=== PATIENT | female | born 1960 | race Caucasian/White ===

== ENCOUNTER 2023-05-10 11:04 | Outpatient (AMB) | payer MEDICARE, MEDICAID, SELFPAY ==
--- NOTE | 2023-05-10 11:10 | MHC.OFFVIS ---
Intake Vital Signs 05/10/23 11:22 Height 5 ft Weight 190 lb BMI 37.1 Handedness Right Intake Visit Reasons: [employer]-pain in right shoulder Intake Note: Marcia is a 63 year old right hand dominant female who presents today as a new patient for a evaluation for her right shoulder pain. Previous patient of . She states that her last injection gave her 2-3 months of relief and she would like to repeat. She describes her pain as sharp in nature. Most of the pain is along the lateral aspect of her shoulder. She has done physical therapy which aggravated her pain. She has also tried Tylenol and anti-inflammatory medicines which gave her minimal relief. Allergies No Known Allergies Allergy (Verified 05/10/23 11:22) [facility] Social History (Updated 05/10/23 @ 11:22 by Armida Jimenes) Alcohol intake: never Patient Tobacco Use Status: Never used Tobacco Physical Exam Vital Signs: BMI result Body Mass Index 37.1 Const Other: Well-nourished well-developed very friendly female awake alert and oriented x3 in no acute distress Extrem Other: Bilateral upper extremity examination shows good capillary refill, no skin lesions noted, normal sensation light touch Right shoulder examination shows decreased range of motion when compared to her left shoulder, positive impingement signs, 4+ out of 5 strength with supraspinatus testing, no instability Office Procedures Joint Injection/Drain Joint Injection/Drain Primary Site: right shoulder Prep: site was prepped using aseptic technique Injected: 40 mg of, Kenalog and 1% plain lidocaine Procedure: The patient tolerated the procedure well Coding 19146 - Large joint Procedure code (CPT) selection complete Results Reviewed Results Reviewed: 05/10/23 11:13 Lidocaine HCl 2 % MPF [Xylocaine 2 % MPF] 5 ml .ROUTE .STK-MED ONE Triamcinolone Acetonide [Kenalog-40] 40 mg .ROUTE .STK-MED ONE X-rays of the patient's right shoulder show severe acromioclavicular joint narrowing, a type 2 acromion, no acute bony abnormalities Assessment & Plan Assessment & Plan (1) Right shoulder pain: Code(s): M25.511 - Pain in right shoulder Plan Ms. Simon presents with right shoulder pain due to impingement syndrome and rotator cuff tendinosis. I had a lengthy discussion with the patient regarding the treatment options. The patient wishes to hold off on surgery for as long as possible. I agree with this plan. The risks and benefits of a right shoulder cortisone injection were discussed at length with the patient. The patient wished to proceed. She tolerated the injection well. She will continue with her home stretching program. She will follow up with me on an as-needed basis should her symptoms not plateau at an unacceptable level over the next few months. Feel free to call me at any time should questions regarding her orthopedic management arise. The I spent 22 minutes in reviewing the patient's records and imaging studies, seeing the patient and documenting in the medical record. Orders: Orders XR shoulder RT min 2V Today M25.511 - Pain in right shoulder AMB Joint Injection/Aspiration Today M25.511 - Pain in right shoulder Coding Level of Care Code Est Pt Level 2 (42701) Diagnoses Right shoulder pain M25.511 CPT Codes Coding - 21288 Large joint: 82084 - Large joint ([id number])
[2023-05-10 11:22] VITALS: BMI 37.1
== END 2023-05-10 11:33 | disposition home or self-care (01) ==
PROVIDERS: PCP Internal Medicine; Visit Provider Orthopaedic Surgery
DX: M25.511 Pain in right shoulder (principal)
CPT/HCPCS: 20610; 99204; 99214

== ENCOUNTER 2023-05-10 16:43 | Outpatient (REF) | payer MEDICARE, MEDICAID, SELFPAY ==
--- NOTE | ~2023-05-10 | XR_ITS ---
EXAMINATION: XR SHOULDER, RIGHT CLINICAL INFORMATION: Pain in right shoulder COMPARISON: None available. TECHNIQUE: AP neutral and scapular Y views of the right shoulder. FINDINGS: The bones are intact. No fracture. Glenohumeral and acromioclavicular alignment is anatomic with normal joint space. Small calcific density adjacent to the humeral head is consistent with calcific tendinitis. XR/XR shoulder RT min 2V IMPRESSION: Calcific tendinitis.
== END 2023-05-10 16:44 | disposition home or self-care (01) ==
LOC: HO.HOSX 16:43
PROVIDERS: Visit Provider Orthopaedic Surgery
DX: M25.511 Pain in right shoulder (principal)
CPT/HCPCS: 20610; 73030; J3301

== ENCOUNTER 2023-08-14 14:20 | Outpatient (AMB) | payer MEDICARE, MEDICAID, SELFPAY ==
--- NOTE | 2023-08-14 14:22 | MHC.OFFVIS ---
Intake Vital Signs 08/14/23 14:23 Height 5 ft Weight 190 lb BMI 37.1 Intake Visit Reasons: ov- -pain in right shoulder last injec 05/10/23 Intake Note: Marcia is a 63 year old female who presents with complaints of right shoulder pain. She denies any weakness. She has done physical therapy exercises which aggravated her pain. She has had cortisone injections in the past which gave her good relief. She wishes to hold off on surgery for as long as possible. Allergies No Known Allergies Allergy (Verified 08/14/23 14:28) Medication List - Last Reconciled 08/14/23 by Dameon Medrano MD blood sugar diagnostic (FreeStyle Lite Strips) As directed duloxetine 60 mg PO DAILY omega 9-dax-jza-fish oil 300 mg (120 mg- 180mg)-1,000 mg 1 cap PO DAILY prednisone 50 mg PO QAM sulindac 150 mg PO BID tramadol 50 mg PO Q8H PRN triamcinolone acetonide 0.1% topical TID triamcinolone acetonide 0.1% appl topical BID PFSH Social History Alcohol intake: never Patient Tobacco Use Status: Never used Tobacco Physical Exam Vital Signs: BMI result Body Mass Index 37.1 Const Other: Well-nourished well-developed very friendly female awake alert and oriented x3 in no acute distress Extrem Other: Bilateral upper extremity examination shows good capillary refill, no skin lesions noted, normal sensation light touch Right shoulder examination shows slightly decreased range of motion when compared to her left shoulder, 4+ out of 5 strength with supraspinatus testing, positive impingement signs, no instability Office Procedures Joint Injection/Drain Joint Injection/Drain Primary Site: right shoulder Prep: site was prepped using aseptic technique Injected: 40 mg of, DepoMedrol and 1% plain lidocaine Procedure: The patient tolerated the procedure well Coding 41684 - Large joint Procedure code (CPT) selection complete Assessment & Plan Assessment & Plan (1) Impingement of right shoulder: Code(s): M25.811 - Other specified joint disorders, right shoulder Plan Ms. Simon presents with right shoulder pain due to impingement syndrome. I had a lengthy discussion with the patient regarding the treatment options. She wishes to hold off on surgery for as long as possible. I agree with this plan. The risks and benefits of a right shoulder cortisone injection were discussed at length with the patient. The patient wished to proceed. She tolerated the injection well. She will continue with her home stretching program. She will follow up with me on an as-needed basis should her symptoms not plateau at an unacceptable level over the next few months. Feel free to call me at any time should questions regarding her orthopedic management arise. I spent 22 minutes in reviewing the patient's records and imaging studies, seeing the patient and documenting in the medical record. Orders: Orders AMB Joint Injection/Aspiration 08/14/23 M25.811 - Other specified joint disorders, right shoulder Coding Level of Care Code Est Pt Level 2 (64330) Diagnoses Impingement of right shoulder M25.811 CPT Codes Coding - 13451 Large joint: 09829 - Large joint ([id number])
[2023-08-14 14:23] VITALS: BMI 37.1
== END 2023-08-14 14:43 | disposition home or self-care (01) ==
PROVIDERS: PCP Internal Medicine; Visit Provider Orthopaedic Surgery
DX: M75.41 Impingement syndrome of right shoulder (principal); M25.811 Other specified joint disorders, right shoulder
CPT/HCPCS: 20610; 99213

== ENCOUNTER → 2023-08-14 14:20 | Outpatient (BNVA) | payer MEDICARE, MEDICAID, SELFPAY | PROVIDERS: PCP Internal Medicine; Visit Provider Orthopaedic Surgery | DX: M25.811 Other specified joint disorders, right shoulder (principal) | CPT/HCPCS: 20610; 99212; J1020 ==

== ENCOUNTER 2023-11-19 13:50 | Outpatient (AMB) | payer MEDICARE, MEDICAID, SELFPAY ==
--- NOTE | 2023-11-19 13:52 | A.OFFVIS_ITS ---
Vital Signs 11/19/23 13:53 Height 5 ft Weight 190 lb BMI 37.1 Intake Visit Reasons: ov- -pain in right shoulder last injec 08/14/23 Intake Note: Marcia is a 63 year old Right hand dominate female who presents for a follow up for her Right shoulder pain. Patient reports she had a right shoulder injection on 08/14/2023 and it gave her good relief. She states she would like to repeat the injection today. She has done physical therapy exercises which aggravated her pain. She denies any weakness. She has taken Tylenol and anti- inflammatory medicines which gave her minimal relief. Allergies No Known Allergies Allergy (Verified 11/19/23 13:57) Medication List - Last Reconciled 11/20/23 by Dameon Medrano MD blood sugar diagnostic (FreeStyle Lite Strips) As directed duloxetine 60 mg PO DAILY omega 9-zvp-vgp-fish oil 300 mg (120 mg- 180mg)-1,000 mg 1 cap PO DAILY prednisone 50 mg PO QAM sulindac 150 mg PO BID tramadol 50 mg PO Q8H PRN triamcinolone acetonide 0.1% topical TID triamcinolone acetonide 0.1% appl topical BID PFSH Social History Alcohol intake: never Patient Tobacco Use Status: Never used Tobacco Physical Exam Vital Signs: BMI result Body Mass Index 37.1 Const Other: Well-nourished well-developed very friendly female awake alert and oriented x3 in no acute distress Extrem Other: Bilateral upper extremity examination shows good capillary refill, no skin lesions noted, normal sensation light touch Right shoulder examination shows slightly decreased range of motion when compared to her left shoulder, 5/5 strength with supraspinatus testing, positive impingement signs, no instability Office Procedures Joint Injection/Drain Joint Injection/Drain Primary Site: right shoulder Prep: site was prepped using aseptic technique Injected: 40 mg of, DepoMedrol and 1% plain lidocaine Procedure: The patient tolerated the procedure well Coding 25620 - Large joint Procedure code (CPT) selection complete Assessment & Plan Assessment & Plan (1) Impingement of right shoulder: Code(s): M25.811 - Other specified joint disorders, right shoulder Category: Medical Plan Ms. Simon presents with right shoulder pain due to impingement syndrome. I had a lengthy discussion with the patient regarding the treatment options. She wishes to hold off on surgery for as long as possible. I agree with this plan. The risks and benefits of a right shoulder cortisone injection were discussed at length with the patient. The patient wished to proceed with the injection. She tolerated the injection well. She will continue with her home stretching program to prevent stiffness. She will follow up with me on an as- needed basis should her symptoms not plateau at an unacceptable level over the next few months. Feel free to call me at any time should questions regarding her orthopedic management arise. I spent 22 minutes in reviewing the patient's records and imaging studies, seeing the patient and documenting in the medical record. Orders: Orders AMB Joint Injection/Aspiration 11/19/23 M25.811 - Other specified joint di sorders, right shoulder Coding Level of Care Code Est Pt Level 2 (08470) Diagnoses Impingement of right shoulder M25.811 CPT Codes Coding - 47698 Large joint: 46669 - Large joint ([id number])
[2023-11-19 13:53] VITALS: BMI 37.1
== END 2023-11-19 14:09 | disposition home or self-care (01) ==
PROVIDERS: PCP Internal Medicine; Visit Provider Orthopaedic Surgery
DX: M25.811 Other specified joint disorders, right shoulder (principal)
CPT/HCPCS: 20610; 99213

== ENCOUNTER → 2023-11-19 13:50 | Outpatient (BNVA) | payer MEDICARE, MEDICAID, SELFPAY | PROVIDERS: PCP Internal Medicine; Visit Provider Orthopaedic Surgery | DX: M25.811 Other specified joint disorders, right shoulder (principal); M25.511 Pain in right shoulder | CPT/HCPCS: 20610; 99212; J1010 ==

== ENCOUNTER 2024-02-18 14:33 | Outpatient (AMB) | payer MEDICARE, MEDICAID, SELFPAY ==
--- NOTE | 2024-02-18 14:34 | MHC.OFFVIS ---
Intake Visit Reasons: ov- -pain in right shoulder last injec 11/19/23 Intake Note: Marcia is a 63 year old female who presents to the office today for pain in right shoulder. Pt states her last cortisone injection was 11/19/23 which she states helped with the pain. She would like another injection today. She has tried Tylenol and anti-inflammatory medicines which gave her mild relief. She denies any weakness. She would like to hold off on surgery if at all possible. Allergies No Known Allergies Allergy (Verified 02/18/24 14:34) Medication List - Last Reconciled 02/19/24 by Dameon Medrano MD blood sugar diagnostic (FreeStyle Lite Strips) As directed duloxetine 60 mg PO DAILY omega 7-txj-mbs-fish oil 300 mg (120 mg- 180mg)-1,000 mg 1 cap PO DAILY prednisone 50 mg PO QAM sulindac 150 mg PO BID tramadol 50 mg PO Q8H PRN triamcinolone acetonide 0.1% topical TID triamcinolone acetonide 0.1% appl topical BID PFSH Social History Alcohol intake: never Patient Tobacco Use Status: Never used Tobacco Physical Exam Const Other: Well-nourished well-developed very friendly female awake alert and oriented x3 in no acute distress Extrem Other: Bilateral upper extremity examination shows good capillary refill, no skin lesions noted, normal sensation light touch Right shoulder examination shows full range of motion when compared to her left shoulder, 5/5 strength with supraspinatus testing, positive impingement signs, no instability Office Procedures Joint Injection/Drain Joint Injection/Drain Primary Site: right shoulder Prep: site was prepped using aseptic technique Injected: 40 mg of, DepoMedrol and 1% plain lidocaine Procedure: The patient tolerated the procedure well Coding 42559 - Large joint Procedure code (CPT) selection complete Assessment & Plan Assessment & Plan (1) Impingement of right shoulder: Code(s): M25.811 - Other specified joint disorders, right shoulder Category: Medical Plan Ms. Simon presents with right shoulder pain due to impingement syndrome. I had a lengthy discussion with the patient regarding the treatment options. She wishes to off on surgery for as long as possible. Agree with this plan. The risks and benefits of a right shoulder cortisone injection were discussed at length with the patient. The patient wished to proceed. She tolerated the injection well. She will continue with her home stretching program to prevent stiffness. She will follow up with me on an as-needed basis should her symptoms not plateau at an unacceptable level over the next few months. Feel free to call me at any time should questions regarding her orthopedic management arise. I spent 22 minutes in reviewing the patient's records and imaging studies, seeing the patient and documenting in the medical record. Orders: Orders AMB Joint Injection/Aspiration 02/18/24 M25.811 - Other specified joint disorders, right shoulder Coding Level of Care Code Est Pt Level 3 (70510) Diagnoses Impingement of right shoulder M25.811 CPT Codes Coding - 18339 Large joint: 20942 - Large joint ([id number])
== END 2024-02-18 15:00 | disposition home or self-care (01) ==
PROVIDERS: PCP Internal Medicine; Visit Provider Orthopaedic Surgery
DX: M25.811 Other specified joint disorders, right shoulder (principal)
CPT/HCPCS: 20610; 99213

== ENCOUNTER → 2024-02-18 14:33 | Outpatient (BNVA) | payer MEDICARE, MEDICAID, SELFPAY | PROVIDERS: PCP Internal Medicine; Visit Provider Orthopaedic Surgery | DX: M25.811 Other specified joint disorders, right shoulder (principal) | CPT/HCPCS: 20610; 99212; J1010 ==

== ENCOUNTER 2024-05-21 10:26 | Outpatient (AMB) | payer MEDICARE, MEDICAID, SELFPAY ==
[2024-05-21 10:32] VITALS: BMI 37.1
--- NOTE | 2024-05-21 10:32 | A.OFFVIS_ITS ---
Vital Signs 05/21/24 10:32 Height 5 ft Weight 190 lb BMI 37.1 Intake Visit Reasons: Right shoulder pain Intake Note: Marcia is a 64 year female who presents with complaints of progressively worsening right shoulder pain. She describes her pain as sharp in nature. She denies any weakness in her right shoulder. She has taken Tylenol and anti- inflammatory medicines which gave her only mild relief. She has had cortisone injections in the past which gave her fairly good relief. She wishes to hold off on surgery if at all possible. Allergies No Known Allergies Allergy (Verified 05/21/24 10:37) Medication List - Last Reconciled 05/21/24 by Dameon Medrano MD blood sugar diagnostic (FreeStyle Lite Strips) As directed duloxetine 60 mg PO DAILY omega 1-xqr-ork-fish oil 300 mg (120 mg- 180mg)-1,000 mg 1 cap PO DAILY prednisone 50 mg PO QAM sulindac 150 mg PO BID tramadol 50 mg PO Q8H PRN triamcinolone acetonide 0.1% topical TID triamcinolone acetonide 0.1% appl topical BID PFSH Social History Alcohol intake: never Patient Tobacco Use Status: Never used Tobacco Physical Exam Vital Signs: BMI result Body Mass Index 37.1 Const Other: Well-nourished well-developed very friendly female awake alert and oriented x3 in no acute distress Extrem Other: Bilateral upper extremity examination shows good capillary refill, no skin le sions noted, normal sensation light touch Right shoulder examination shows full range of motion when compared to her left shoulder, 4+ out of 5 strength with supraspinatus testing, positive impingement signs, tenderness over her acromioclavicular joint, no instability Office Procedures Joint Injection/Aspiration Joint Injection/Aspiration Primary Site: right shoulder Prep: site was prepped using aseptic technique Injected: 40 mg of, DepoMedrol and 1% plain lidocaine Procedure: The patient tolerated the procedure well Coding 89598 - Large joint Procedure code (CPT) selection complete Assessment & Plan Assessment & Plan (1) Impingement of right shoulder: Code(s): M25.811 - Other specified joint disorders, right shoulder Category: Medical (2) Right shoulder pain: Code(s): M25.511 - Pain in right shoulder Category: Medical Plan Marcia presents with right shoulder pain due to impingement syndrome. I had a lengthy discussion with the patient regarding the treatment options. The risks and benefits of a right shoulder cortisone injection were discussed at length with the patient. The patient wished to proceed. She tolerated the injection well. She will continue with her home stretching program. She will follow up with me on an as-needed basis should her symptoms not plateau at an unacceptable level over the next few months. Feel free to call me at any time should questions regarding her orthopedic management arise. I spent 22 minutes in reviewing the patient's records and imaging studies, seeing the patient and documenting in the medical record. Orders: Orders AMB Joint Injection/Aspiration Today M25.811 - Other specified joint disorders, right shoulder Coding Level of Care Code Est Pt Level 3 (45444) Complex EM visit Add On G2211 Diagnoses Impingement of right shoulder M25.811 Right shoulder pain M25.511 CPT Codes Coding - 56319 Large joint: 71150 - Large joint ([id number])
== END 2024-05-21 11:02 | disposition home or self-care (01) ==
PROVIDERS: PCP Internal Medicine; Visit Provider Orthopaedic Surgery
DX: M75.42 Impingement syndrome of left shoulder (principal); M25.811 Other specified joint disorders, right shoulder
CPT/HCPCS: 20610; 99213

== ENCOUNTER → 2024-05-21 10:26 | Outpatient (BNVA) | payer MEDICARE, MEDICAID, SELFPAY | PROVIDERS: PCP Internal Medicine; Visit Provider Orthopaedic Surgery | DX: M25.511 Pain in right shoulder (principal); M25.811 Other specified joint disorders, right shoulder | CPT/HCPCS: 20610; 99212; J1010; J2003 ==

== ENCOUNTER 2024-08-20 09:42 | Outpatient (AMB) | payer MEDICARE, MEDICAID, SELFPAY ==
[2024-08-20 09:46] VITALS: BMI 133570.0
--- NOTE | 2024-08-20 09:46 | MHC.OFFVIS ---
Vital Signs 08/20/24 09:46 Height 1 in Weight 190 lb BMI 585510.0 Intake Visit Reasons: Inj-right shoulder-last injection 05/21/24 Intake Note: Marcia is a 64 year female who presents with complaints of right shoulder pain. She describes her pain as sharp in nature. She has had cortisone injections past which gave her fairly good relief. She wishes to hold off on surgery for as long as possible. She has tried Tylenol and ibuprofen which gave her mild relief. She denies any weakness. Allergies No Known Allergies Allergy (Verified 08/20/24 09:46) Medication List - Last Reconciled 08/20/24 by Dameon Medrano MD blood sugar diagnostic (FreeStyle Lite Strips) As directed duloxetine 60 mg PO DAILY omega 4-rzu-dsr-fish oil 300 mg (120 mg- 180mg)-1,000 mg 1 cap PO DAILY prednisone 50 mg PO QAM sulindac 150 mg PO BID tramadol 50 mg PO Q8H PRN triamcinolone acetonide 0.1% topical TID triamcinolone acetonide 0.1% appl topical BID PFSH Social History Alcohol intake: never Patient Tobacco Use Status: Never used Tobacco Physical Exam Vital Signs: BMI result Body Mass Index 306598.0 Const Other: Well-nourished well-developed very friendly female awake alert and oriented x3 in no acute distress Extrem Other: Bilateral upper extremity examination shows good capillary refill, no skin lesions noted, normal sensation light touch Right shoulder examination shows slightly decreased range of motion when compared to her left shoulder, 5/5 strength with supraspinatus testing, positive impingement signs, tenderness over her acromioclavicular joint, no instability Assessment & Plan Assessment & Plan (1) Impingement of right shoulder: Code(s): M25.811 - Other specified joint disorders, right shoulder Category: Medical Plan Marcia presents with right shoulder pain due to impingement syndrome. The risks and benefits of a right shoulder cortisone injection were discussed at length with the patient. The patient wished to proceed. She tolerated the injection well. She will continue with her home stretching program. She will contact me prior to her follow-up appointment in 3 months should any questions or concerns arise. Feel free to call me at any time should questions regarding her orthopedic management arise. I spent 20 minutes in reviewing the patient's records and imaging studies, seeing the patient and documenting in the medical record. Orders: Orders AMB Joint Injection/Aspiration Today M25.811 - Other specified joint disorders, right shoulder Coding Level of Care Code Est Pt Level 3 (92626) Complex EM visit Add On G2211 Diagnoses Impingement of right shoulder M25.811
== END 2024-08-20 10:03 | disposition home or self-care (01) ==
PROVIDERS: PCP Internal Medicine; Visit Provider Orthopaedic Surgery
DX: M25.811 Other specified joint disorders, right shoulder (principal)
CPT/HCPCS: 99213; G2211

== ENCOUNTER → 2024-08-20 09:42 | Outpatient (BNVA) | payer MEDICARE, MEDICAID, SELFPAY | PROVIDERS: PCP Internal Medicine; Visit Provider Orthopaedic Surgery | DX: M25.811 Other specified joint disorders, right shoulder (principal) | CPT/HCPCS: 99212; J1010; J2003 ==

== ENCOUNTER 2025-05-20 11:31 | Outpatient (AMB) | payer MEDICARE, MEDICAID, SELFPAY ==
--- NOTE | 2025-05-20 11:34 | MHC.OFFVIS ---
Vital Signs 05/20/25 11:38 Height 5 ft Handedness Right Intake Visit Reasons: Right shoulder pain Intake Note: Marcia is a 65 year old female who presents with complaints of right shoulder pain. She describes her pain as sharp in nature. Most of the pain is along the lateral aspect of her right shoulder. She has had cortisone injections in the past which gave her fairly good relief. She denies any weakness. She wishes to hold off on surgery if at all possible. She has tried Advil and Tylenol which gave her mild relief. Allergies No Known Allergies Allergy (Verified 05/20/25 11:38) Medication List - Last Reconciled 05/20/25 by Dameon Medrano MD blood sugar diagnostic (FreeStyle Lite Strips) As directed duloxetine 60 mg PO DAILY omega 1-erv-jau-fish oil 300 mg (120 mg- 180mg)-1,000 mg 1 cap PO DAILY prednisone 50 mg PO QAM sulindac 150 mg PO BID tramadol 50 mg PO Q8H PRN triamcinolone acetonide 0.1% topical TID triamcinolone acetonide 0.1% appl topical BID PFSH Social History Alcohol intake: never Patient Tobacco Use Status: Never used Tobacco Physical Exam Const Other: Well-nourished well-developed very friendly female awake alert and oriented x3 in no acute distress Extrem Other: Right shoulder examination shows almost full range of motion when compared to her left shoulder, 5/5 strength with supraspinatus testing, positive impingement signs, no instability Office Procedures AMB Joint Injection/Aspiration Joint Injection/Aspiration Primary Site: right shoulder Prep: site was prepped using aseptic technique Injected: 40 mg of, DepoMedrol, with 4 mL of and 1% plain lidocaine Procedure: The patient tolerated the procedure well Coding 80133 - Large joint Procedure code (CPT) selection complete Assessment & Plan Assessment & Plan (1) Impingement of right shoulder: Code(s): M25.811 - Other specified joint disorders, right shoulder Category: Medical (2) Right shoulder pain: Code(s): M25.511 - Pain in right shoulder Category: Medical Plan Ms. Simon presents with right shoulder pain due to impingement syndrome. The risks and benefits of a right shoulder cortisone injection were discussed at length with the patient. The patient wished to proceed. She tolerated the injection well. She will continue with her home stretching program to prevent stiffness. She will contact me prior to her follow-up appointment in 3 months should any questions or concerns arise. Feel free to call me at any time should questions regarding her orthopedic management arise. I spent 22 minutes in reviewing the patient's records and imaging studies, seeing the patient and documenting in the medical record. Orders: Orders AMB Joint Injection/Aspiration Today M25.811 - Other specified joint disorders, right shoulder Coding Level of Care Code Est Pt Level 3 (95834) Complex EM visit Add On G2211 Diagnoses Impingement of right shoulder M25.811 Right shoulder pain M25.511 CPT Codes Coding - 59285 Large joint: 04873 - Large joint ([id number])
--- OUTSIDE RECORDS SUMMARY | 2025-05-20 14:40 | XMS_ITS | Clinical Summary ---
Author Organization [facility] Address [address] [place] [address] Care Team Providers Care [employer] Nurse Name Role Phone Flo Carty MD Primary Care Provider [phone] Allergies No known active allergies Medications Medication Sig Dispensed Refills Start Date End Date Status HYDROcodone-acetaminop hen (NORCO) 5-325 MG per tablet Take 5-325 tablets by mouth every 6 (six) hours as needed. for pain 0 02/04/2017 Active naproxen (NAPROSYN) 500 MG tablet Take 500 mg by mouth 2 (two) times a day with meals. 5 02/24/2017 Active baclofen (LIORESAL) 10 MG tablet TAKE 1 TABLET BY MOUTH THREE TIMES A DAY 0 11/29/2016 Active DULoxetine (CYMBALTA) DR capsule 30 mg Take 30 mg by mouth. 0 07/03/2018 Active [place]-3 Fatty Acids (FISH OIL) 1000 MG CAPS Take 1 capsule by mouth daily. 0 07/03/2018 Active tiZANidine (ZANAFLEX) 4 MG tablet Take 4 mg by mouth. 0 05/22/2018 Active sulindac (CLINORIL) 150 MG tablet TAKE 1 TABLET BY MOUTH 2 TIMES DAILY 0 07/16/2019 Active B Mkenldr-Frvvwd-SF (HM VITAMIN B100 COMPLEX) TABS Take 1 tablet by mouth. 0 11/06/2018 Active MAGNESIUM PO Take 500 mg by mouth. 0 11/06/2018 Active omeprazole (PriLOSEC) 40 MG capsule Take 40 mg by mouth. 0 07/16/2019 Active Diclofenac Sodium 1 % GEL APPLY 4 GRAMS TO THE SKIN FOUR TIMES DAILY NEEDED FOR BACK PAIN 0 2021 Active pregabalin (LYRICA) capsule 50 mg Take 50 mg by mouth. 0 11/24/2020 Active sulindac (CLINORIL) 150 MG tablet Take 1 tablet by mouth 2 (two) times a day. 0 06/29/2021 Active B Complex Vitamins (Vitamin B Complex) TABS Take 1 tablet by mouth daily. 0 08/24/2021 Active cyclobenzaprine (FLEXERIL) 10 MG tablet TAKE 1 TABLET BY MOUTH THREE TIMES DAILY FOR UP TO 10 DAYS NEEDED FOR MUSCLE SPASMS 0 08/24/2021 Active lidocaine (XYLOCAINE) 5 % ointment Apply 5 gm to area bid 0 08/24/2021 Active Active Problems Problem Noted Date Diagnosed Date Shoulder impingement, right 08/26/2019 Chronic right shoulder pain 03/06/2017 Family History Medical History Relation Name Comments Arthritis Father Arthritis Mother Relation Name Status Comments Father Mother Social History Tobacco Use Types Packs/Day Years Used Date Smoking Tobacco: Never Alcohol Use Standard Drinks/Week Comments No 0 (1 standard drink = 0.6 oz pur e alcohol) Sex and Gender Information Value Date Recorded Sex Assigned at Not on file Gender Identity Not on file Sexual Orientation Not on file Job Start Date Occupation Industry Not on file Not on file Not on file Last Filed Vital Signs Vital Sign Reading Time Taken Comments Blood Pressure - - Pulse - - Temperature - - Respiratory Rate - - Oxygen Saturation - - Inhaled Oxygen Concentration - - Weight 78 kg (172 lb) 03/06/2017 2:16 PM EDT Height 152.4 cm (5') 03/06/2017 2:16 PM EDT Body Mass Index 33.59 03/06/2017 2:16 PM EDT Plan of Treatment Health Maintenance Due Date Last Done Comments Hepatitis C Screening 1960 COVID-19 Vaccine (#1) 1960 Depression Screening 1972 Preventative Health Evaluation 1978 DTap / Tdap / Td (1 - Tdap) 1979 Cervical Cancer Screening (P ap Smear) 1981 Colon Cancer Screening (Colonoscopy) 2005 Breast Cancer Screening (Mammogram) 2010 Shingrix-Zoster Vaccine (1 of 2) 2010 Influenza Vaccine (#1) 2025 Fall Risk Assessment 2025 Osteoporosis Screening (DEXA Scan) 2025 Pneumococcal Vaccine (1 of 1 - PCV) 2025 RSV Adult > 60+ Yrs or Pregn ant (1 - 1-dose 75+ series) 2035 Hepatitis B Vaccines Aged Out No long er eligible based on patient's age to complete this topic Pneumococcal Vaccine Aged Out No long er eligible based on patient's age to complete this topic RSV Ped < 20 months Aged Out No longe r eligible based on patient's age to complete this topic Care Teams [employer] Nurse Relationship Specialty Start Date End Date Flo Carty MD PCP - General Internal Medicine 02/22/17
--- OUTSIDE RECORDS SUMMARY | 2025-05-20 14:40 | XMS_ITS | Data Portability ---
Author Organization [facility] Cristian Carty [facility], [facility] Address [address] [place] [address] Care Team Providers Care Campus Administrator Name Role Phone AGAPITO LUZ Referring Provider Assessment Encounter Date Assessment Date Assessment LastModified by Organization Details LastModified Time 03/26/2024 03/26/2024 History: The patient is approximately 3 months status post a right total knee arthroplasty and presents for routine follow-up per our request. Still with mild discomfort in her right knee. Does take ibuprofen regularly for this. It is over the lateral aspect of the knee around the IT band. Biggest issue, however, is increasing pain in her left knee. Has a history of osteoarthritis left knee. Does not wish to be considered for surgery at this point as she is still recovering from the right. She wants to discuss other treatment options. She is accompanied by her son today who helps interpret. Ambulating with a cane. PMH/PSH/MEDS/ALL/F MH/SOC HX/ROS all reviewed in detail per my medical intake sheet. ROS: The patient denies fevers, chills, neurovascular changes, history of trauma. Exam: Vitals signs as noted. Alert and oriented x3. Appears well and in no acute distress. Extremities: Incision is well-healed. Calves are soft and nontender. No evidence of DVT. No lower extremity edema. Neurovascular status at baseline. Orthopedic Examination: Right Knee: Well-healed incision. Range of motion 0-125. No instability. 4+ out of 5 quad strength with no extension lag. Tenderness around the IT band insertion. Appropriately mild effusion Left Knee: Varus alignment. Motion 5-120. Severe tenderness and crepitus medially. No instability. Mild effusion. Also 4+/5 quad strength with no extension lag. Antalgic gait pattern favoring the left side. Full strength and sensation distally X-rays: Radiographs reviewed from her previous visit including a standing AP, Winters view, nonweightbearing lateral views, and merchant view. These radiographs demonstrate end-stage osteoarthrits of the left knee. There is zrsl-dv-[id number] articulation, subchondral sclerosis, and osteophyte formation. Assessment: End-stage osteoarthritis of the left knee. The patient is doing reasonably well approximately 3 months s/p TKA -has some mild IT band tendinitis For her right knee replacement, the patient will continue with a home exercise program for additional strengthening and conditioning. Otherwise, the patient will continue with activity as tolerated. The patient was advised to take occasional OTC acetaminophen or OTC NSAIDS for mild residual discomfort if they are not otherwise medically contraindicated. They are encouraged to discuss this with their PCPS. The potential benefits, risks, and side effects were explained at length.Total knee replacement activity precautions were reviewed. The need for antibiotic prophylaxis for dental visits was discussed. The patient will follow-up annually or sooner if there are any problems. For her left knee osteoarthritis, the patient was thoroughly counseled today regarding their knee condition, its natural history and the options, both operative and non-operative. The nature of knee replacement surgery, the potential risks, benefits, and complications, the magnitude of the surgery, the intensity of postoperative recovery as well as its elective nature were explained at length today. Although it is impossible to list all of the possible complications of any operation or procedure, I explained that some of the major complications that may arise include the following: Blood loss requiring transfusion, infection (early or late), blood clots, dislocation, pain (persistent or new), scars numbness or tenderness, unequal leg lengths, weakness, stiffness, loss of motion, clicking of implant, calcification, fracture of bone, instability of leg, nerve damage (paralysis or numbness), blood vessel damage, implant loosening, implant breakage, wearing of the implant, need for future surgery, allergic reaction, metal toxicity, medical complications including confusion, heart attack, stroke, or ). Issues regarding lifelong infection and activity precautions were reviewed. The longevity of the implants was discussed. The patient understands the potential need for revision surgery. She does not wish to be considered for surgical intervention at this time. She does agree to having a corticosteroid injection in her left knee. This was given. Please see procedure note. She can repeat these injections every 3 months if they are effective. The patient knows I will be happy to meet with them at any time in order to review any additional questions or concerns that they might have. [email or web address] Not available 03/26/2024 12:09:33 01/07/2025 01/07/2025 Patient diagnosi s discussed with patient today. At this time symptoms most consistent with rotator cuff tendinopathy and impingement of that shoulder. Do not have any high suspicion at this point time for large full-thickness rotator cuff tear that would necessitate formal pain. Discussed roles of anti-inflammatorie s physical therapy and cortisone injection. At this point recommend a cortisone injection. Patient agrees to treatment plan. No significant improvement we will happily see her for modalities as noted above. [email or web address] Not available 01/07/2025 11:53:23 Plan of Treatment Reminders Order Date Submit Date Provider Last Modified By Organization Details Last Modified Time Details Appointments RECHECK 15 2024 02:15P David Aguila PA-C Not available Not available Not available Lab None recorded. Referral None recorded. Procedures None recorded. Surgeries None recorded. Imaging XR, shoulder, 2 or more view - room 211, R shoulder 4v 2024 025 [email or web address] 1 [facility], [address] [facility] [address], [address], 01/12/2025 10:44:36 Medication Orders amoxicill in 500 mg capsule 2023 024 [email or web address] [id number], [address] [place] [address], [facility] [address], [place], [place], [id number], 03/26/2024 16:52:26 Patient TargetsNo targets recorded. Patient InstructionsNo instructions recorded. Reason for Referral None Reported. Results Created Date Observation Date Name Description Value Unit Range Abnormal Flag Note LastModifiedBy Organization Detail LastModifiedTime 03/28/20 24 02/08/2022 imagi ng/di agnos tic resul t No observ ation record ed. [email or web address] Not Available 02/28 00:47:10 03/28/20 24 02/08/2022 imagi ng/di agnos tic resul t No observ ation record ed. [email or web address] Not Available 02/28 00:47:11 01/08/20 25 01/07/2025 XR, shoul claudio, 2 or more view http:/ [email or web address] ?Encry pted=s hAaTro YD8dLq bEUv6g %2BXZw aYqtaq 0bqfl% 2Fg9IQ a4ajBk vP9nXo QUaueC m3YtLR FvZlgJ JJ8mAn HZtai3 5x2583 AC0Kla H6BWKa gKiQtr MwF INTERFACE [facility] [address] [facility] [address], [place], [address], 01/07/2025 10:57:13 01/08/20 25 01/07/2025 XR, shoul claudio, 2 or more view http:/ [email or web address] ?Encry pted=s hAaTro YD8dLq bEUv6g %2BXZw aYqtaq 0bqfl% 2Fg9IQ a4ajBk vP9nXo QUaueC m3YtLR FvZlgJ JJ8mAn HZtai3 4r8945 AC0Kla H6BWKa gKiQtr MwF INTERFACE [facility] [address] [facility] [address], [place], [address], 01/07/2025 10:57:15 Result Notes Documentation Provider Name and Address Organization Details Recorded Time Xr, Shoulder, 2 Or More View : [email or web address] Encrypted=gcYzKcaYP4oYukS Uv6g%5YJNikCetcm0httd%2Fg 8CIf1hrWszN8eWbHWsimJk5Po MGHdZbsQFP7vYdKPuls86c314 6GI9DrsE1UYPvcFnIpwNnE Not Available [facility] 01/07/2025 10:57: 14 Xr, Shoulder, 2 Or More View : [email or web address] Encrypted=ruVhCljOQ4lSooF Uv6g%0GGRezAewep8ofrx%2Fg 5FSg5lyKnbR1iTuWJmjvMv1Qq PJSvMjrHJS0hLsMNjdk80q306 2IZ7KdrM2EWHdyLgUptIaS Not Available [facility] 01/07/2025 10:57: 16 Problems Name Problem SNOMED Code Status Onset Date Resolution Date Notes Provider Name and Address Organization Details Recorded Time Pain of joint of knee [id number] Active 022 Status: 'A'; Not Available [facility] 12:12:56 Problem Notes None recorded. Procedures Surgical History Date Name Laterality Status Provider Name and Address Organization Details Recorded Time 5 Knee Kenalog 1cc L/R completed Hernan Aguila PA-C [address], [place], [address], [facility] 03/05/2025 13:52:07 5 Sports Shoulder completed Hernan Aguila PA-C [address], [place], [address], [facility] 01/07/2025 11:52:50 5 Knee Kenalog 1cc L/R completed Hernan Aguila PA-C [address], [place], [address], [facility] 12/03/2024 12:21:03 5 Knee Kenalog 1cc L/R completed Hernan Aguila PA-C [address], [place], [address], [facility] 08/28/2024 14:35:55 4 Sports Knee 4&1 active Ministerio Eason PA-C [address], [place], [address], [facility] 06/19/2024 13:48:06 4 Sports Knee 4&1 completed Chintan Russell MD [address], [place], [address], [facility] 03/26/2024 12:04:29 4 64602 Therapeutic Exercise (1:1) completed Rosales Wing COSTUMING SUPERVISOR [address], [place], [address], [facility] 03/04/2024 13:37:40 4 22932 Therapeutic Exercise (1:1) completed Reinaldo Monroe, PT [address], [place], [address], [facility] 02/19/2024 12:39:45 4 41812 Therapeutic Exercise (1:1) cancelled Reinaldo Monroe, PT [address], [place], [address], [facility] 02/13/2024 16:53:37 4 71714 Therapeutic Exercise (1:1) completed Rosales Wing PTA [address], [place], [address], [facility] 02/11/2024 13:10:14 4 26166 Therapeutic Exercise (1:1) completed Rosales Wing PTA [address], [place], [address], [facility] 02/07/2024 13:12:34 4 71517 Therapeutic Exercise (1:1) completed Rosales Wing COSTUMING SUPERVISOR [address], [place], [address], [facility] 02/04/2024 10:09:13 4 11120 Therapeutic Exercise (1:1) completed Rosales Wing, COSTUMING SUPERVISOR [address], [place], [address], [facility] 01/31/2024 14:21:37 4 48115 Therapeutic Exercise (1:1) completed Rosales Wing, COSTUMING SUPERVISOR [address], [place], [address], [facility] 01/24/2024 15:26:19 4 95304 Therapeutic Exercise (1:1) completed Rosales Wing, COSTUMING SUPERVISOR [address], [place], [address], [facility] 01/23/2024 14:19:18 4 47947 Therapeutic Exercise (1:1) completed Rosales Wing, COSTUMING SUPERVISOR [address], [place], [address], [facility] 01/22/2024 13:31:20 4 55453 Therapeutic Exercise (1:1) completed Reinaldo Monroe, PT [address], [place], [address], [facility] 01/16/2024 15:56:14 4 39326 Therapeutic Exercise (1:1) completed Rosales Wing, COSTUMING SUPERVISOR [address], [place], [address], [facility] 01/13/2024 17:10:03 4 18462: Manual therapy completed Rosales Wing, COSTUMING SUPERVISOR [address], [place], [address], [facility] 01/13/2024 17:10:03 4 42578 Therapeutic Exercise (1:1) completed Rosales Wing, COSTUMING SUPERVISOR [address], [place], [address], [facility] 01/10/2024 14:37:40 4 14351: Manual therapy completed Rosales Wing, COSTUMING SUPERVISOR [address], [place], [address], [facility] 01/10/2024 14:37:47 4 42466 Therapeutic Exercise (1:1) completed Rosales Wing, COSTUMING SUPERVISOR [address], [place], [address], [facility] 01/08/2024 18:22:59 4 09365 Therapeutic Exercise (1:1) completed Reinaldo Monroe, PT [address], [place], [address], [facility] [employer] [facility] 01/01/2024 15:29:13 4 11496 Therapeutic Exercise (1:1) completed Reinaldo Monroe, PT [address], [place], [address], [facility] [employer] [facility] 12/30/2023 11:31:25 4 97451: Low complexity PT Eval completed Reinaldo Monroe, PT [address], [place], [address], [facility] 12/30/2023 11:31:32 4 G8417 BMI Above Upper Parameters, F/U Documented completed Reinaldo Monroe, PT [address], [place], [address], [facility] 12/30/2023 11:34:45 4 G8428 Current Meds NOT Documented Reason Not Specified completed Reinaldo Monroe, PT [address], [place], [address], [facility] 12/30/2023 11:34:51 4 39268 Therapeutic Exercise (1:1) completed Mike Reyes DPT [address], [place], [address], [facility] 11/28/2023 14:30:17 4 40228: Low complexity PT Eval completed Mike Reyes DPT [address], [place], [address], [facility] 11/28/2023 14:30:24 4 G8417 BMI Above Upper Parameters, F/U Documented completed Mike Reyes DPT [address], [place], [address], [facility] 11/28/2023 14:31:12 4 G8427 Current Medication Documented completed Mike Reyes DPT [address], [place], [address], [facility] 11/28/2023 14:31:08 Imaging Results None recorded. Procedure Notes None recorded. Medical Equipment None Reported. Allergies No known drug allergies Medications Name Sig Start Date Stop Date Status Note LastModified by Organization Details LastModified Time magnesium 500mg tablets TAKE 1 TABLET BY MOUTH DAILY active Not Available Not Available No t Available celecoxib 200 mg capsule Take 1 capsule(s ) every day by oral route for 33 days. 03/26 completed Not Available Not Available Not Available amoxicillin 500 mg capsule TAKE 4 CAPSULES BY MOUTH 1 HOUR BEFORE DENTAL APPOINTME NT active Not Available Not Available No t Available cetirizine 10 mg tablet TAKE 1 TABLET BY MOUTH EVERY DAY active Not Available Not Available No t Available FreeStyle Lancets 28 gauge USE TO TEST ONCE DAILY 03/26 completed Not Available Not Available Not Available ondansetron HCl 4 mg tablet TAKE 1 TABLET BY MOUTH EVERY 6 HOURS FOR 7 DAYS 03/26 completed Not Available Not Available Not Available sulindac 150 mg tablet TAKE 1 TABLET BY MOUTH TWICE DAILY active Not Available Not Available No t Available omeprazole 40 mg capsule,del ayed release TAKE 1 CAPSULE BY MOUTH DAILY active Not Available Not Available No t Available tramadol 50 mg tablet TAKE 1 TO 2 TABLETS BY MOUTH EVERY 6 HOURS NEEDED FOR MILD PAIN. DO NOT EXCEED 8 TABLETS (400MG) PER DAY. 03/26 completed Not Available Not Available Not Available aspirin 325 mg tablet,nikko yed release TAKE 1 TABLET BY MOUTH TWICE DAILY 03/26 completed Not Available Not Available Not Available prednisone 50 mg tablet TAKE 1 TABLET BY MOUTH DAILY IN THE MORNING FOR 5 DAYS 03/26 completed Not Available Not Available Not Available magnesium 500 mg (as magnesium oxide) tablet TAKE 1 TABLET BY MOUTH DAILY active Not Available Not Available No t Available docusate sodium 100 mg capsule TAKE 1 CAPSULE BY MOUTH TWICE DAILY 03/26 completed Not Available Not Available Not Available triamcinolo ne acetonide 0.1 % lotion APPLY TOPICALLY TO THE AFFECTED AREA THREE TIMES DAILY active Not Available Not Available No t Available loratadine 10 mg tablet TAKE 1 TABLET BY MOUTH EVERY DAY active Not Available Not Available No t Available oxycodone 5 mg tablet TAKE 1 TABLET BY MOUTH FOUR TIMES DAILY NEEDED FOR PAIN 03/26 completed Not Available Not Available Not Available duloxetine 60 mg capsule,del ayed release TAKE 1 CAPSULE BY MOUTH DAILY active Not Available Not Available No t Available FreeStyle Lite Meter kit USE TO CHECK BLOOD SUGAR DIRECTED 03/26 completed Not Available Not Available Not Available FreeStyle Lite Strips USE TO TEST ONCE DAILY 03/26 completed Not Available Not Available Not Available Refresh Optive 0.5 %-0.9 % eye drops INSTILL 1 DROP FOUR TIMES DAILY BOTH EYES active Not Available Not Available No t Available diclofenac 1 % topical gel APPLY 4 GRAMS TOPICALLY TWICE DAILY active Not Available Not Available No t Available omega-3 300 mg-dha 120 mg-epa 180 mg-fish oil 1,000 mg capsule TAKE 1 CAPSULE BY MOUTH EVERY DAY active Not Available Not Available No t Available Vitals Date Recorded Body height Body mass index (BMI) Body weight Provider Name and Address Organization Details Last Updated DateTime 08/28/2024 149.86 cm 39.4 kg/m2 37048.51 [facility] 08/28/2024 13:58:14 Date Recorded Body height Body mass index (BMI) Body weight Provider Name and Address Organization Details Last Updated DateTime 12/03/2024 149.86 cm 39.4 kg/m2 91663.51 g [facility] 12/03/2024 11:12:40 Date Recorded Body height Body mass index (BMI) Body weight Provider Name and Address Organization Details Last Updated DateTime 01/07/2025 149.86 cm 39.4 kg/m2 36887.51 g [facility]et [facility] 01/07/2025 10:47:31 Date Recorded Body height Body mass index (BMI) Body weight Provider Name and Address Organization Details Last Updated DateTime 03/05/2025 149.86 cm 39.4 kg/m2 59731.51 g [facility] 03/05/2025 13:44:20 Date Recorded Body height Body mass index (BMI) Body weight Provider Name and Address Organization Details Last Updated DateTime 03/26/2024 149.86 cm 39 kg/m2 90604.33 g RUI JESUS [facility] 03/26/2024 11:32:25 Social History None recorded. Functional Status None recorded. Mental Status None recorded. Family History Nothing Reported. Medical History No medical history recorded. Gynecological HistoryNo gynecological history recorded. Obstetrics History GPAL:G 0 P 0 0 0 0 Past Encounters Encounter ID Performer Location Encounter Start Date Encounter Closed Date Diagnosis/Indication Diagnosis SNOMED-CT Code Diagnosis ICD10 Code Diagnosis IMO Codes Diagnosis Note [id number] Mike Reyes DPT [facility] [address] [place] [address] 11/28/2023 12:56:58 11/28/2023 14:18:26 Osteoarthritis of knee 733870803 M17.11 [id number] Richy Pearson APRN [facility] [address] [place] [address] 12/16/2023 13:31:29 01/07/2024 04:09:23 Osteoarthritis of right knee joint 7929561273 89385 M17.11 [id number] Reinaldo Monroe, PT [facility] [address] [place] [address] 12/30/2023 11:00:59 12/30/2023 11:57:56 Aftercare 008563949 Z47.1 History of total knee arthroplasty 5589996881 105 Z96.542 [id number] Reinaldo Monroe, PT [facility] [address] [place] [address] 01/01/2024 14:45:20 01/01/2024 15:24:53 Aftercare [id number] Z47.1 History of total knee arthroplasty 8765808559 105 Z96.167 [id number] Fifi Berg PA-C [facility] [address] [place] [address] 01/03/2024 14:49:40 02/04/2024 12:19:35 History of right total knee replacement 6490877683 516120 Z96.651 Postoperative visit 1836 31460 Z48.89 Knee joint prosthesis present 4217863775 02 Z96.747 [id number] Rosales Wing, COSTUMING SUPERVISOR [facility] [address] [facility] [place] [address] 01/08/2024 17:28:20 01/08/2024 17:35:55 Aftercare 494573809 Z47.1 History of total knee arthroplasty 9440208087 105 Z96.557 [id number] Rosales Wing, COSTUMING SUPERVISOR [facility] [address] [place] [address] 01/10/2024 13:46:55 01/10/2024 15:06:20 Aftercare 780847451 Z47.1 History of total knee arthroplasty 8358674460 105 Z96.757 [id number] Rosales Wing, COSTUMING SUPERVISOR [facility] [address] [place] [address] 01/14/2024 13:46:25 01/14/2024 14:03:19 Aftercare 414180217 Z47.1 History of total knee arthroplasty 3951511546 105 Z96.150 [id number] Reinaldo Monroe, PT [facility] [address] [place] [address] 01/16/2024 15:26:58 01/16/2024 16:02:51 Aftercare 746794597 Z47.1 History of total knee arthroplasty 0937985726 105 Z96.327 [id number] CECILIA Berger [address] [place] [address] 01/20/2024 14:02:39 02/11/2024 11:39:57 Osteoarthritis of knee 038461062 M17.9 [id number] Rosales Wing, COSTUMING SUPERVISOR [facility] [address] [facility] [place] [address] 01/22/2024 13:06:00 01/22/2024 13:22:10 Aftercare 443380345 Z47.1 History of total knee arthroplasty 8946284442 105 Z96.022 [id number] Rosales Wing, COSTUMING SUPERVISOR [facility] [address] [place] [facility] [place] [address] 01/24/2024 11:03:36 01/24/2024 11:34:08 Aftercare [id number] Z47.1 History of total knee arthroplasty 9750438125 105 Z96.133 [id number] Rosales Wing, COSTUMING SUPERVISOR [facility] [address] [place] [facility] [address] 01/27/2024 14:50:26 01/27/2024 15:21:55 Aftercare 399846474 Z47.1 History of total knee arthroplasty 0880147836 105 Z96.389 [id number] Rosales iWng, COSTUMING SUPERVISOR [facility] [address] [place] [facility] [address] 02/03/2024 14:53:14 02/03/2024 15:51:22 Aftercare 362392059 Z47.1 History of total knee arthroplasty 8618587078 105 Z96.489 [id number] Rosales Wing, COSTUMING SUPERVISOR [facility] [address] [facility] [place] [address] 02/05/2024 13:02:12 02/05/2024 15:35:02 Aftercare 562733855 Z47.1 History of total knee arthroplasty 4164798076 105 Z96.124 [id number] Rosales Wing, COSTUMING SUPERVISOR [facility] [address] [facility] [place] [address] 02/10/2024 11:27:30 02/10/2024 12:02:59 Aftercare 616993747 Z47.1 History of total knee arthroplasty 8694964932 105 Z96.868 [id number] Rosales Wing, COSTUMING SUPERVISOR [facility] [address] [facility] [place] [address] 02/12/2024 11:27:28 02/12/2024 12:11:40 Aftercare 993309118 Z47.1 History of total knee arthroplasty 4315214147 105 Z96.597 [id number] Reinaldo Monroe, PT [facility] [address] [facility] [place] [address] 02/19/2024 12:00:06 02/19/2024 12:30:33 Aftercare [id number] Z47.1 History of total knee arthroplasty 5309685521 105 Z96.849 [id number] Orville Bueno PA-C [facility] [address] [place] [address] 02/27/2024 13:00:11 03/23/2024 08:40:18 Osteoarthritis of knee 805058675 M17.9 [id number] Rosales Wing, COSTUMING SUPERVISOR [facility] [address] [place] [address] 03/04/2024 11:56:00 03/04/2024 12:56:54 Aftercare [id number] Z47.1 History of total knee arthroplasty 6288478148 105 Z96.967 [id number] Chintan Russell MD [facility] [address] [place] [address] 03/26/2024 11:23:15 04/17/2024 11:29:07 History of right total knee replacement 1111758258 255239 Z96.651 Osteoarthr itis of left knee joint 7370206463 72026 M17.12 [id number] CECILIA Roca [facility] [address] [place] [address] 08/28/2024 13:47:04 09/10/2024 12:24:06 Osteoarthritis of left knee joint [id number] M17.12 [id number] You have been provided with a cortisone injection in order to reduce the pain and inflammati on that you are experienci ng. The injection consists of two medication s. Cortisone (an anti-infla mmatory that will take 48-72 hours to take effect) and Lidocaine (a numbing agent that will last 2-3 hours). Please note that not everyone will have a lasting response following the injection. PATIENT INSTRUCTIO NSOnce the Lidocaine wears off, you may have an increase in your pain. I recommend icing the affected area for 20 minutes 3-4 times per day.It is recommende d that you refrain from any high level activities using the joint or limb that was injected for approximat betina 24-48 hours. Normal day-to-day activities are generally not a problem.PO SSIBLE SIDE EFFECTSInd ividuals with dark complexion s may experience some skin discolorat ion locally at the site of the injection. There is the possibilit y of an increase in discomfort within 48 hours following the injection. This is called a f lare . To help minimize the chances of this, please see the post-injec tion instructio ns above.Ther e is a less than 1% chance of an infection. If you notice any signs of infection (redness, warmth, drainage, fever greater than 100 degrees) please call our office or contact us through the portal [facility]. [id number] [place] [address] 12/03/2024 11:01:23 12/18/2024 08:56:24 Osteoarthritis of left knee joint [id number] M17.12 [id number] You have been provided with a cortisone injection in order to reduce the pain and inflammati on that you are experienci ng. The injection consists of two medication s. Cortisone (an anti-infla mmatory that will take 48-72 hours to take effect) and Lidocaine (a numbing agent that will last 2-3 hours). Please note that not everyone will have a lasting response following the injection. PATIENT INSTRUCTIO NSOnce the Lidocaine wears off, you may have an increase in your pain. I recommend icing the affected area for 20 minutes 3-4 times per day.It is recommende d that you refrain from any high level activities using the joint or limb that was injected for approximat betina 24-48 hours. Normal day-to-day activities are generally not a problem.PO SSIBLE SIDE EFFECTSInd ividuals with dark complexion s may experience some skin discolorat ion locally at the site of the injection. There is the possibilit y of an increase in discomfort within 48 hours following the injection. This is called a f lare . To help minimize the chances of this, please see the post-injec tion instructio ns above.Ther e is a less than 1% chance of an infection. If you notice any signs of infection (redness, warmth, drainage, fever greater than 100 degrees) please call our office or contact us through the portal [facility]. [id number] [address] [place], [place] [address] 01/07/2025 10:41:09 01/18/2025 09:44:22 Pain of right shoulder joint [id number] M25.511 [id number] Impingemen t syndrome of right shoulder region [id number] M75.41 [id number] You have been provided with a cortisone injection in order to reduce the pain and inflammati on that you are experienci ng. The injection consists of two medication s. Cortisone (an anti-infla mmatory that will take 48-72 hours to take effect) and Lidocaine (a numbing agent that will last 2-3 hours). Please note that not everyone will have a lasting response following the injection. PATIENT INSTRUCTIO NSOnce the Lidocaine wears off, you may have an increase in your pain. I recommend icing the affected area for 20 minutes 3-4 times per day.It is recommende d that you refrain from any high level activities using the joint or limb that was injected for approximat betina 24-48 hours. Normal day-to-day activities are generally not a problem.PO SSIBLE SIDE EFFECTSInd ividuals with dark complexion s may experience some skin discolorat ion locally at the site of the injection. There is the possibilit y of an increase in discomfort within 48 hours following the injection. This is called shaylee grace . To help minimize the chances of this, please see the post-injec tion instructio ns above.Ther e is a less than 1% chance of an infection. If you notice any signs of infection (redness, warmth, drainage, fever greater than 100 degrees) please call our office or contact us through the portal [facility]. Arthritis of right acromioclavicular joint [id number] M19.011 [id number] [address] [place] [address] 03/05/2025 13:37:05 03/18/2025 13:33:23 Osteoarthritis of left knee joint [id number] M17.12 [id number] You have been provided with a cortisone injection in order to reduce the pain and inflammati on that you are experienci ng. The injection consists of two medication s. Cortisone (an anti-infla mmatory that will take 48-72 hours to take effect) and Lidocaine (a numbing agent that will last 2-3 hours). Please note that not everyone will have a lasting response following the injection. PATIENT INSTRUCTIO NSOnce the Lidocaine wears off, you may have an increase in your pain. I recommend icing the affected area for 20 minutes 3-4 times per day.It is recommende d that you refrain from any high level activities using the joint or limb that was injected for approximat betina 24-48 hours. Normal day-to-day activities are generally not a problem.PO SSIBLE SIDE EFFECTSInd ividuals with dark complexion s may experience some skin discolorat ion locally at the site of the injection. There is the possibilit y of an increase in discomfort within 48 hours following the injection. This is called a f lare . To help minimize the chances of this, please see the post-injec tion instructio ns above.Ther e is a less than 1% chance of an infection. If you notice any signs of infection (redness, warmth, drainage, fever greater than 100 degrees) please call our office or contact us through the portal [facility]. Health Concerns Section Related Observation LastModified by Organization Detai ls LastModified Time None Recorded Concern Status LastModified by Organization Details LastModified Time None Recorded Advance Directives Directive None Recorded Payers Insurance Date Sequence Insurance Name Policy Number Policy Fernandes Covered Member ID Fernandes Member ID Guarantor Name 03/03/2025 1 [place] [employer] Marcia Simon [id number] Marcia Simon 03/02/2025 2 [place] [facility] Marcia Simon [id number] Marcia Simon Notes Date Note Type Note Provider Name and Address Organization Details Recorded Time 08/28/2024 text/html I am seeing the patient today under the supervision of Dr. Bazzi who was available but who did not see the patient. HPI: Patient comes in for recheck of left knee pain. Has known osteoarthritis in the medial compartment of the knee(s). Been treated conservatively with cortisone injection to this point with 12 weeks relief of symptoms. No new injury or modalities. Past family, medical, social history and review of systems has been reviewed, updated and is located in the patient s chart. Examination:The patient is well appearing and in no apparent distress. Alert and oriented x3. Vital signs per intake sheet. Examination of the left knee reveals no effusion erythema or warmth. Decreased range of motion. Lower extremity varus deformity. Point tender over the medial joint line. Calf soft and nontender. 4+/5 strength of knee flexion extension. Impression: Osteoarthritis Plan: Nature of the diagnosis discussed with the patient today. Both surgical and nonsurgical options were reviewed. This point recommend a repeat cortisone injection. Patient agreed. anterior lateral portal was used. See Procedure note. Follow-up with us in 3 months for discussion of continued conservative management versus total joint arthroplasty. Hernan Aguila PA-C [address] [facility] [address] [place] [address], [phone], [facility] - [employer] 08/28/2024 14:36:14 12/03/2024 text/html I am seeing the patient today under the supervision of Dr. Kennedy who was available but who did not see the patient. HPI: Patient comes in for recheck of left knee pain. Has known osteoarthritis in the medial compartment of the knee(s). Been treated conservatively with cortisone injection to this point with 12 weeks relief of symptoms. No new injury or modalities. Past family, medical, social history and review of systems has been reviewed, updated and is located in the patient s chart. Examination:The patient is well appearing and in no apparent distress. Alert and oriented x3. Vital signs per intake sheet. Examination of the left knee reveals no effusion erythema or warmth. Decreased range of motion. Lower extremity varus deformity. Point tender over the medial joint line. Calf soft and nontender. 4+/5 strength of knee flexion extension. Impression: Osteoarthritis Plan: Nature of the diagnosis discussed with the patient today. Both surgical and nonsurgical options were reviewed. This point recommend a repeat cortisone injection. Patient agreed. anterior lateral portal was used. See Procedure note. Follow-up with us in 3 months for discussion of continued conservative management versus total joint arthroplasty. Hernan Aguila PA-C [address], [place], [address], [facility] 12/03/2024 12:21:28 01/07/2025 text/html I am seeing the patient today under the supervision of who was available but who did not see the patient. Patient was in for evaluation of right shoulder pain. Patient reports that the pain has been going on for a number of years has gotten worse last couple months has been discomfort of the lateral brachium difficulty with overhead motions reaching behind her back, getting dressed as well as sleeping. Patient has had no previous injury or surgery to that shoulder. Patient reports that she has undergone cortisone injections at an outside institution which has given her excellent relief of symptoms. Pain is now returned. Last injection was around July. Hernan Aguila PA-C [address], [place], [address], [facility] 01/07/2025 11:54:21 03/05/2025 text/html I am seeing the patient today under the supervision of Dr. Russell who was available but who did not see the patient. HPI: Patient comes in for recheck of left knee pain. Has known osteoarthritis in the medial compartment of the knee(s). Been treated conservatively with cortisone injection to this point with 10 weeks relief of symptoms. No new injury or modalities. Past family, medical, social history and review of systems has been reviewed, updated and is located in the patient s chart. Examination:The patient is well appearing and in no apparent distress. Alert and oriented x3. Vital signs per intake sheet. Examination of the left knee reveals no effusion erythema or warmth. Decreased range of motion. Lower extremity varus deformity. Point tender over the medial joint line. Calf soft and nontender. 4+/5 strength of knee flexion extension. Impression: Osteoarthritis Plan: Nature of the diagnosis discussed with the patient today. Both surgical and nonsurgical options were reviewed. This point recommend a repeat cortisone injection. Patient agreed. anterior lateral portal was used. See Procedure note. Follow-up with us in 3 months for discussion of continued conservative management versus total joint arthroplasty. Hernan Aguila PA-C [address], [place], [address], [facility] - [employer] 03/05/2025 13:52:35 OBGyn Episode No OBEpisode recorded.
--- OUTSIDE RECORDS SUMMARY | 2025-05-20 14:40 | XMS_ITS ---
Author Name [facility] Organization Unknown Care Team Organization Name Specialty Phone Email [facility] Date [facility] 06/05/2022
--- OUTSIDE RECORDS SUMMARY | 2025-05-20 14:40 | XMS_ITS | Clinical Summary ---
Author Organization [facility] [address] [place] [address] [place] [phone] Phone Care Team Providers Care Therapy Site Coordinator Name Role Phone Flo Carty MD Primary Care Provider [phone] Allergies No known active allergies Medications B complex tablet Take 1 tablet by mouth daily. 2 Active blood-glucose meter misc 1 Each by Does not apply route daily. 3 Active cyclobenzaprine (FLEXERIL) 10 mg tablet Take 1 tablet by mouth 3 times daily as needed for Muscle spasms for up to 10 days. 2 Active docosahexaenoic acid-epa 120-180 mg capsule Take 1 capsule by mouth daily. 4 Active blood sugar diagnostic (FreeStyle Lite Strips) test strip Test once daily 3 Active potassium/magne sium (MAGNESIUM-POTA SSIUM ORAL) 9 Active HYDROcodone-maikel taminophen (NORCO) 5-325 mg per tablet Take 1 tablet by mouth every 6 hours as needed for Pain for up to 7 days. 1 Active HYDROcodone-maikel taminophen (VICODIN) 5-300 mg per tablet Take 1 tablet by mouth every 6 hours as needed for Pain. 1 Active ketoconazole (NIZORAL) 2 % shampoo Let lather x 15 minutes daily 9 Active lidocaine (XYLOCAINE) 5 % ointment Apply 5 gm to area bid 2 Active pregabalin (LYRICA) 50 mg capsule 2 Active ketoconazole (NIZORAL) 2 % cream Apply topically 2 (two) times a day. 15 g 5 Active freestyle (FreeStyle Lancets) 28 gauge lancets 1 (one) time each day. 100 each 1 5 Active Additional Information Patient not taking.Reported on 04/16/2025 diclofenac (VOLTAREN) 1 % topical gel Apply 4 g topically 2 (two) times a day. 30 g 3 5 Active cetirizine (ZyrTEC) 10 mg tablet Take 1 tablet (10 mg total) by mouth 1 (one) time each day. 90 tablet 1 5 Active DULoxetine (CYMBALTA) [address] capsule TAKE 1 CAPSULE BY MOUTH DAILY 90 capsule 1 5 Active triamcinolone (KENALOG) 0.1 % lotion APPLY TOPICALLY TO THE AFFECTED AREA THREE TIMES DAILY 60 mL 5 5 Active omeprazole (PriLOSEC) [address] capsule TAKE 1 CAPSULE BY MOUTH DAILY 90 capsule 1 5 Active FreeStyle Test test strip Use to test blood sugar once daily 100 each 1 5 02/17/20 26 Active Additional Information Patient not taking.Reported on 04/16/2025 sulindac (CLINORIL) 150 mg tablet TAKE 1 TABLET BY MOUTH TWICE DAILY 180 tablet 1 5 Active magnesium oxide 500 mg magnesium tablet TAKE 1 TABLET BY MOUTH DAILY 90 tablet 1 5 Active atorvastatin (LIPITOR) 10 mg tablet Take 1 tablet (10 mg total) by mouth 1 (one) time each day. 90 each 1 5 04/16/20 26 Active Active Problems Problem Noted Date Diagnosed Date Seborrhea 07/16/2019 Obesity, Class II, BMI 35-39.9 03/19/2019 Pre-diabetes 10/23/2017 Acromioclavicular joint arthritis 10/06/2015 Adhesive capsulitis 10/06/2015 Overview (05/06/2024): Following with orthopedics (Marcela). Receiving cortisone injection. Lumbar disc disease 10/06/2015 Carpal tunnel syndrome 01/05/2015 Chronic back pain 08/02/2006 Encounters Date Type Department Care Team Description 04/16/2025 11:00 AM EDT Office Visit Adult Medicine [address] [phone] Flo Carty MD Type 2 diabetes mellitus without complication, without long-term current use of insulin ([facility] V24, [facility] V28) (Primary Dx); High cholesterol from Last 3 Months Surgical History Surgery Date Site/Laterality Comments TUBAL LIGATION PROCEDURE: HISTORICAL TUBAL LIGATION CHOLECYSTECTOMY 2006 PROCEDURE: HISTORICAL CHOLECYSTECTOMY Medical History Medical History Date Comments Chronic back pain 08/02/2006 DX:Chronic souleymane k pain; COMMENT: IMO update Carpal tunnel syndrome 01/05/2015 DX:Carpal tunnel syndrome Elevated glucose 12/30/2013 DX:Elevated glu cose Obesity, Class II, BMI 35-39.9 03/19/2019 D X:Obesity, Class II, BMI 35-39.9 Family History Medical History Relation Name Comments Diabetes Aunt Diabetes Mother Relation Name Status Comments Aunt Mother Social History Tobacco Use Types Packs/Day Years Used Date Smoking Tobacco: Never Smokeless Tobacco: Never Tobacco Cessation:Counseling Given: Not Answered Alcohol Use Standard Drinks/Week Comments No 0 (1 standard drink = 0.6 oz pur e alcohol) Housing Instability Answer Date Recorde d Are you worried that in the next 2 months you may not have stable housing? No 12/11/2024 Food Access & Nutrition Answer Date Rec orded Do you have access to a vari ety of food including fruits and vegetables? No 12/11/2024 Health Literacy Answer Date Recorded How often do you need to hav e someone help you when you read instructions, pamphlets, or other written material from your doctor or pharmacy? Often 12/11/2024 Caregiver: How often do you need to have someone help you when you read instructions, pamphlets, or other written material from your doctor or pharmacy? Not on file 12/11/2024 Financial Risk Answer Date Recorded How hard is it for you to pa y for the very basics like food, housing, medical care, and air conditioning / heating? Not very hard 12/11/2024 Transportation Answer Date Recorded Has the lack of transportati on kept you from meetings, work, or from getting things needed for daily living? No Has the lack of transportati on kept you from medical appointments or from getting medications? No 12/11/2024 Social Isolation Answer Date Recorded How often do you feel lonely or isolated from th ose around you? Never 12/11/2024 Food Risk Answer Date Recorded Within the past 12 months we worried whether our food would run out before we got money to buy more. Never true 12/11/2024 Within the past 12 months th e food we bought just didn't last and we didn't have money to get more. Never true 12/11/2024 Dependent Care Answer Date Recorded Do you need help finding or paying for care for your loved ones. For example, child care team lead or elderly care for an older adult? No 12/11/2024 Education Answer Date Recorded Do you think completing more education or training, like finishing a GED, going to college, or learning a trade, would be helpful for you? No 12/11/2024 Employment and Income Answer Date Recor ded During the last four weeks, have you been actively looking for work? No 12/11/2024 Living Situation Answer Date Recorded What is your living situation? Unrecognized valu e 12/11/2024 Comments No Sex and Gender Information Value Date Recorded Sex Assigned at Not on file Legal Sex Female 1:33 AM EST Gender Identity Not on file Sexual Orientation Not on file Obstetrics History Last Filed Vital Signs Vital Sign Reading Time Taken Comments Blood Pressure 122/76 04/16/2025 10:36 AM EDT Pulse 74 04/16/2025 10:36 AM EDT Temperature 36.5 C (97.7 F) 04/16/2025 10:36 AM EDT Respiratory Rate 16 04/16/2025 10:36 AM EDT Oxygen Saturation 95% 04/16/2025 10:36 AM EDT Inhaled Oxygen Concentration - - Weight 85.3 kg (188 lb) 04/16/2025 10:36 AM EDT Height 152.4 cm (5') 04/16/2025 10:36 AM EDT Body Mass Index 36.72 04/16/2025 10:36 AM EDT Plan of Treatment Health Maintenance Due Date Last Done Comments Diabetes: Annual Foot Exam 1970 Diabetes: Annual Retina Eye Exam 1970 DTaP,Tdap,and Td Vaccines (1 - Tdap) 1979 Pneumococcal Vaccine: 50+ Years (1 of 2 - PCV) 1979 Cervical Cancer Screening: P ap Smear 1981 Zoster Vaccines (1 of 2) 2010 Breast Cancer Screening 11/14/2019 11/14/19 18, 11/06/2017 Hepatitis C Screening 07/05/2022 Osteoporosis Screening (Bone Density Screening) 07/05/2022 Medicare Annual Wellness Visit 12/21/2023 12/20/2022 COVID-19 Vaccine (1 - 2023-2 5 season) 2025 Influenza Vaccine (#1) 2025 Falls Risk Assessment 2025 Diabetes: Blood Sugar Contro l Test (HGBA1C) 10/14/2025 04/16/2025, 12/11/2024, 07/05/2023 Social Influencers of Health Screening 12/11/2025 12/11/2024 Diabetes: Annual Urine Albumin-Creatinine Ratio (uACR) 04/16/2026 04/16/2025, 12/11/2024, 07/05/2023 Diabetes: Annual GFR (Glomerular Filtration Rate) 04/16/2026 04/16/2025, 12/11/2024, 12/28/2022 Colorectal Cancer Screening: FIT-DNA (Cologuard) 01/16/2028 01/15/2025, 01/15/2025 Cholesterol Screening (Lipid Panel) 04/16/2030 04/16/2025, 12/11/2024, 07/05/2023 RSV Immunization Adult Patients (1 - 1-dose 75+ series) 2035 Depression Screening Completed 12/11/2024 HIB Vaccines Aged Out No longer eligi ble based on patient's age to complete this topic HPV Vaccines Aged Out No longer eligi ble based on patient's age to complete this topic Hepatitis A Vaccines Aged Out No long er eligible based on patient's age to complete this topic Hepatitis B Vaccines Aged Out No long er eligible based on patient's age to complete this topic IPV Vaccines Aged Out No longer eligi ble based on patient's age to complete this topic MMR Vaccines Aged Out No longer eligi ble based on patient's age to complete this topic Meningococcal ACWY Vaccine Aged Out N o longer eligible based on patient's age to complete this topic Meningococcal B Vaccine Aged Out No l onger eligible based on patient's age to complete this topic RSV Immunization Patients Under 20 months Aged Out No longer eligible b ased on patient's age to complete this topic Varicella Vaccines Aged Out No longer eligible based on patient's age to complete this topic Procedures Procedure Name Priority Date/Time Associated Diagnosis Comments HEMOGLOBIN A1C Routine 04/16/2025 11:27 AM EDT Type 2 diabetes mellitus without complication, without long-term current use of insulin ([facility] V24, [facility] V28) LIPID PANEL WITH REFLEX TO DIRECT LDL Routine 04/16/2025 11:27 AM EDT Type 2 diabetes mellitus without complication, without long-term current use of insulin ([facility] V24, [facility] V28) High cholesterol COMPREHENSIVE METABOLIC PANEL Routine 04/16/2025 11:27 AM EDT Type 2 diabetes mellitus without complication, without long-term current use of insulin ([facility] V24, [facility] V28) MICROALBUMIN CREATININE URINE RATIO Routine 04/16/2025 11:27 AM EDT Type 2 diabetes mellitus without complication, without long-term current use of insulin ([facility] V24, [facility] V28) POC GLUCOSE Routine 04/16/2025 10:57 AM EDT Type 2 diabetes mellitus without complication, without long-term current use of insulin ([facility] V24, [facility] V28) LAB COLOGUARD COLON CANCER SCREEN Routine 01/15/2025 8:00 AM EDT Screen for colon cancer DX MAMMO INCL CAD UNI Routine 11/13/2017 4:27 PM EDT Other abnormal and inconclusive findings on diagnostic imaging of breast from Last 3 Months or Most Recently Relevant to Health Maintenance Results * (ABNORMAL) Lipid panel with reflex to direct LDL (04/16/2025 11:27 AM EDT) Cholesterol 204(H) 0 - 200 mg/dL LAB CHEMISTRY METHOD 04/16/2025 3:36 PM EDT [facility] Triglycerides 122 0 - 150 mg/dL LAB CHEMISTRY METHOD 04/16/2025 3:36 PM EDT [facility] HDL 56 >=40 mg/dL LAB CHEMISTRY METHOD 04/16/2025 3:36 PM EDT [facility] LDL Calculated 124(H) 0 - 100 mg/dL LAB CHEMISTRY METHOD 04/16/2025 3:36 PM EDT [facility] Comment:Estimated LDL Calcul ated using equation: Total cholesterol - HDL cholesterol - (Triglycerides/5) VLDL Cholesterol Kali 24.4 mg/dL LAB CHEMISTRY METHOD 04/16/2025 3:36 PM EDT [facility] Non HDL Chol. (LDL+VLDL) 148(H) <145 mg/dL LAB CHEMISTRY METHOD 04/16/2025 3:36 PM EDT [facility] Chol/HDL Ratio 3.6 0.0 - 4.4 LAB CHEMISTRY METHOD 04/16/2025 3:36 PM EDT [facility] Blood Venous blood specimen / Unknown Venipuncture / Unknown 04/16/2025 11:27 AM EDT 04/16/2025 11:27 AM EDT us Flo Carty MD LAB BLOOD ORDERABLES Final Resu lt [facility] [address] [place] [address], * Microalbumin creatinine urine ratio (04/16/2025 11:27 AM EDT) Creatinine, Urine 187.0 mg/dL LAB CHEMISTRY METHOD 04/16/2025 4:03 PM EDT [facility] Microalb, Ur 15.4 0.0 - 29.0 mg/L LAB CHEMISTRY METHOD 04/16/2025 4:03 PM EDT [facility] Microalb/Creat Ratio 8 <30 mg/g creat LAB CHEMISTRY METHOD 04/16/2025 4:03 PM EDT [facility] Urine Urine specimen obtained by clean catch procedure / Unknown Non-blood Collection / Unknown 04/16/2025 11:27 AM EDT 04/16/2025 11:27 AM EDT us Flo Carty MD LAB URINE ORDERABLES Final Resu lt Performing Organization Address [facility]/ZIP Co de Phone Number [facility] [address] [place] [address], [place] [phone] * (ABNORMAL) Hemoglobin A1c (04/16/2025 11:27 AM EDT) Hemoglobin A1C 6.8(H) <6.5 % LAB CHEMISTRY METHOD 04/16/2025 9:19 PM EDT [facility] Mean Bld Glu Estim. 148 mg/dL LAB CHEMISTRY METHOD 04/16/2025 9:19 PM EDT [facility] Blood Venous blood specimen / Unknown Venipuncture / Unknown 04/16/2025 11:27 AM EDT 04/16/2025 11:27 AM EDT us Flo Carty MD LAB BLOOD ORDERABLES Final Resu lt Performing Organization Address [facility]/ZIP Co de Phone Number [facility] [address] [place] [address], [place] [phone] * (ABNORMAL) Comprehensive metabolic panel (04/16/2025 11:27 AM EDT) Sodium 137 133 - 145 mmol/L LAB CHEMISTRY METHOD 04/16/2025 3:45 PM EDT [facility] Potassium 4.4 3.5 - 5.5 mmol/L LAB CHEMISTRY METHOD 04/16/2025 3:45 PM EDT [facility] Chloride 106 96 - 110 mmol/L LAB CHEMISTRY METHOD 04/16/2025 3:45 PM [facility] CO2 29 21 - 32 mmol/L LAB CHEMISTRY METHOD 04/16/2025 3:45 PM [facility] Anion Gap 2(L) 3 - 11 LAB CHEMISTRY METHOD 04/16/2025 3:45 PM [facility] Glucose 106(H) 70 - 100 mg/dL LAB CHEMISTRY METHOD 04/16/2025 3:45 PM [facility] BUN 10 5 - 25 mg/dL LAB CHEMISTRY METHOD 04/16/2025 3:45 PM [facility] Creatinine 0.70 0.50 - 1.10 mg/dL LAB CHEMISTRY METHOD 04/16/2025 3:45 PM [facility] eGFR 97 >=60 mL/min/1. 73m2 LAB CHEMISTRY METHOD 04/16/2025 3:45 PM [facility] Comment:Calculation based on the Chronic Kidney Disease Epidemiology Collaboration (CKD-EPI) equation refit without adjustment for race. BUN/Creatinine Ratio 14.3 LAB CHEMISTRY METHOD 04/16/2025 3:45 PM [facility] Calcium 9.6 8.5 - 10.5 mg/dL LAB CHEMISTRY METHOD 04/16/2025 3:45 PM [facility] AST (SGOT) 18 10 - 42 unit/L LAB CHEMISTRY METHOD 04/16/2025 3:45 PM [facility] ALT (SGPT) 26 10 - 60 unit/L LAB CHEMISTRY METHOD 04/16/2025 3:45 PM [facility] Alkaline Phosphatase 131(H) 42 - 121 unit/L LAB CHEMISTRY METHOD 04/16/2025 3:45 PM [facility] Total Protein 6.9 6.0 - 8.0 g/dL LAB CHEMISTRY METHOD 04/16/2025 3:45 PM EDT [facility] Albumin 3.9 3.2 - 5.0 g/dL LAB CHEMISTRY METHOD 04/16/2025 3:45 PM EDT [facility] Total Bilirubin 0.4 0.0 - 1.4 mg/dL LAB CHEMISTRY METHOD 04/16/2025 3:45 PM EDT [facility] Blood Venous blood specimen / Unknown Venipuncture / Unknown 04/16/2025 11:27 AM EDT 04/16/2025 11:27 AM EDT us Flo Carty MD LAB BLOOD ORDERABLES Final Resu lt [facility] [address] [place] [address], [place] [phone] * (ABNORMAL) POC glucose manually resulted (04/16/2025 10:57 AM EDT) Glucose POC 119(A) 70 - 110 mg/dL Blood Capillary blood specimen / Unknown 04/16/2025 10:57 AM EDT us Flo Carty MD POINT OF CARE TEST ENTER/EDIT O RDERABLES Final Result * Cologuard?? colon cancer screening (01/15/2025 8:00 AM EDT) COLOGUARD Negative Negative [facility] Comment: The Cologuard Plus (TM) test was performed on this specimen. NEGATIVE TEST RESULT. A negative (normal) Cologuard Plus result means the patient has a [id number] chance of having colorectal cancer (CRC) or advanced precancer (polyps or lesions that could become cancer). Negative is the normal value (reference range) for this assay. Guidelines recommend screening again 3 years after a negative Cologuard Plus result. Continued screening increases the chance of finding CRC early or preventing it entirely. A clinical validation study showed the Cologuard Plus test is effective at ruling out CRC. Out of every 10,000 patients testing negative, approximately 2 will be falsely reassured that they do not have CRC, and out of every 100 patients testing negative, approximately 7 patients will be falsely reassured they do not have advanced precancer. TEST DESCRIPTION: The Cologuard Plus test is a multi-target stool DNA (mt-sDNA) test that analyzes DNA and hemoglobin biomarkers in stool. It uses a proprietary algorithm to qualitatively detect CRC and advanced precancer. It is FDA-approved and indicated for use in adults 45 years or older at average risk for CRC. A positive (abnormal) result should be followed by a colonoscopy. Patients with a negative (normal) result should screen again in 3 years. False positive and false negative results may occur. The USPSTF recommends the Cologuard test as a CRC screening option. Their modeling estimates that screening with the test every 3 years from ages 45-85 could prevent up to 73% of CRC and avoid up to 85% of CRC deaths. A 18,911-patient clinical trial found the Cologuard Plus test effectively detects CRC and precancer. The study found the test was 95% sensitive for CRC, 43% sensitive for advanced precancer, and had a 91% specificity (Cologuard Plus Clinician Brochure. [employer]. [place], [place].). Visit [email or web address] for more test information, references, warnings, and precautions. Stool 01/15/2025 8:00 AM EDT 01/16/2025 3:56 PM EDT Flo Carty MD LAB MOLECULAR DIAGNOSTICS ORDER JOSE ALEJANDRO Final Result [facility] [address] [address] [facility] [address] [place] [address] * DX MAMMO INCL CAD UNI (11/13/2017 4:27 PM EDT) Anatomical Region Laterality Modality Mammography 11/11/2017 11:1 8 AM EDT Narrative 12/02/2018 8:53 AM EDT This is a summary report. The complete report is available in the patient's medical record. If you cannot access the medical record, please contact the sending organization for a detailed fax or copy. Addendum: The patient never returned for the scheduled 6 month follow-up left breast mammogram or for yearly mammogram with magnification views. The patient stated that she did not wish to reschedule at this time. Unilateral left breast diagnostic digital mammogram History: Microcalcifications retroareolar left breast on baseline screening mammogram of 11/06/2017. Technique: Magnetization views of the left breast in the CC, MLO and mediolateral projections are obtained. Findings: There are faint loosely grouped punctate calcifications in the retroareolar region of the left breast. Impression: Probably benign left breast micro-calcifications. Magnification views of the left breast in 6 months to assess stability are recommended and have been scheduled. BI-RADS 3-probable benign 5 year breast cancer risk assessment N/A Lifetime breast cancer risk assessment N/A Breast cancer risk category Breast cancer risk not assessed Procedure Note Rosio Gutiérrez MD - 09/02/2023 This is a summary report. The complete report is available in thepatient's medical record. If you cannot access the medical record, pleasecontact the sending organization for a detailed fax or copy. Addendum: The patient never returned for the scheduled 6 month follow-upleft breast mammogram or for yearly mammogram with magnification views. The patient stated thatshe did not wish to reschedule at this time. Unilateral left breast diagnostic digital mammogram History: Microcalcifications retroareolar left breast on baselinescreening mammogram of 11/06/2017. Technique: Magnetization views of the left breast in the CC, MLO andmediolateral projections are obtained. Findings: There are faint loosely grouped punctate calcifications in theretroareolar region of the left breast. Impression: Probably benign left breast micro-calcifications.Magnification views of the left breast in 6 months to assess stability arerecommended and have been scheduled. BI-RADS 3-probable benign 5 year breast cancer risk assessment N/A Lifetime breast cancer risk assessment N/A Breast cancer risk category Breast cancer risk not assessed [facility] BI PROCEDURES Edited Resu lt - Final from Last 3 Months or Most Recently Relevant to Health Maintenance Insurance MEDICARE [place]ICAID [place] [facility] Care Teams Therapy Site Coordinator Relationship Specialty Start Date End Date Flo Carty MD [address] [place] [phone] PCP - General Internal Medicine 07/01/24
== END 2025-05-20 11:48 | disposition home or self-care (01) ==
LOC: HO.HOS 11:31
PROVIDERS: PCP Internal Medicine; Visit Provider Orthopaedic Surgery
DX: M25.811 Other specified joint disorders, right shoulder (principal); M25.511 Pain in right shoulder
CPT/HCPCS: 20610; 99213

== ENCOUNTER → 2025-05-20 11:31 | Outpatient (BNVA) | payer MEDICARE, MEDICAID, SELFPAY | PROVIDERS: PCP Internal Medicine; Visit Provider Orthopaedic Surgery | DX: M25.811 Other specified joint disorders, right shoulder (principal); M25.511 Pain in right shoulder | CPT/HCPCS: 20610; 99212; J1010; J2003 ==

== ENCOUNTER 2025-06-15 09:55 | Outpatient (AMB) | payer MEDICARE, MEDICAID, SELFPAY ==
--- NOTE | 2025-06-15 10:02 | A.PHYSOV_ITS ---
Vital Signs 06/15/25 10:04 Height 5 ft Weight 175 lb BMI 34.2 Intake Visit Reasons: 3M FUV Intake Note: Patient is a 65 year old in office today for Billateral Carpal Tunnel Injection. Previous injection 03/16/25 [employer] Specialist Required: No Allergies No Known Allergies Allergy (Verified 06/15/25 10:03) HPI Comments Details: History of Present Illness The patient is a 65-year-old female presenting with persistent lower back and polyarticular pain. She has a history of receiving multiple intraarticular injections for pain management over the years. Recently, she has been managed with corticosteroid injections to the right thumb carpometacarpal joint and left carpal tunnel. She has a history of right carpal tunnel surgery, but symptoms persist, and she is reluctant to undergo surgery on the left side. The patient denies any changes in bowel and bladder habits, fever, or chills. She presents today for repeat injections, with the most recent procedures performed on March 16, 2025, and she typically receives them every three months . Pain Description - Persistent lower back and polyarticular pain - Managed with multiple intraarticular injections - Corticosteroid injections to right thumb CMC joint and left carpal tunnel - Reluctance for left carpal tunnel surgery despite persistent symptoms Results [facility] Medical History (Updated 06/15/25 @ 11:47 by Thomas Cote DO) Polyarthritis Carpal tunnel syndrome of left wrist Arthritis of carpometacarpal (CMC) joint of right thumb Carpal tunnel syndrome on both sides Surgical History History of carpal tunnel surgery (Unknown) History of knee surgery (Unknown) Social History (Updated 06/15/25 @ 10:06 by Grecia Barrera MA) Household Members: None Alcohol intake: never Patient Tobacco Use Status: Never used Tobacco Current occupational status: unemployed Review of Systems Narrative Review of Systems - Gastrointestinal: Denies changes in bowel habits or blood in stool - Constitutional: Denies fever or chills Physical Exam Exam Exam: Physical Exam Patient appears to be in no acute distress, appropriately conversant oriented. She was able to ambulate without antalgia today. Lumbar range of motion was restricted in extension and side bending. Pain with palpation over both knees medial joint lines. Neurological examination of upper and lower extremities was nonfocal. Carpal compression test was positive on the left side. Pain with palpation of the right thumb CMC joint. Patient demonstrated no upper motor neuron signs. Vital Signs: BMI result Body Mass Index 34.2 Office Procedures AMB Carpal Tunnel Injection AMB Carpal Tunnel Injection Details: With patient sitting left hand resting on the examination table skin over carpal tunnel was prepped with alcohol. 1.5 in 25 gauge hypodermic needle was introduc ed into the carpal tunnel and total volume of 1 cc containing 20 mg of triamcinolone and 1% lidocaine was injected after negative aspiration for blood and without resistance. Carpal Tunnel Injection -: Left All charges added?: Procedure code (CPT) selection complete AMB Thumb CMC Injection AMB Thumb Injection Details: Right thumb CMC joint was palpated and marked. Skin was cleansed with alcohol. 1.5 in 25 gauge hypodermic needle was introduced percutaneously and advanced into the joint. Total volume of 1 cc containing 20 mg of triamcinolone and 2% lidocaine were injected after negative aspiration for blood without resistance. Thumb CMC Injection - : Right All charges added?: Procedure code (CPT) selection complete Office Meds Kenalog 40 mg/mL suspension for injection Performing Provider: Thomas Cote DO Performing Location: [facility] Administered by: Thomas Cote DO on 06/15/25 11:49 Dose Route Admin Location Dispensed Lot Number Expiration Date [facility] [employer] 20 mg peripheral nerve block 0.5 mL [id number] [employer] Total Dispensed Waste 0.5 mL 0 % lidocaine (PF) 20 mg/mL (2 %) injection solution Performing Provider: Thomas Cote DO Performing Location: [facility] Administered by: Thomas Cote DO on 06/15/25 11:49 Dose Route Admin Location Dispensed Lot Number Expiration Date [facility] [employer] Teacher 20 mg peripheral nerve block 1 mL [id number] Total Dispensed Waste 1 mL 0 % Kenalog 40 mg/mL suspension for injection Performing Provider: Thomas Cote DO Performing Location: [facility] Administered by: Thomas Cote DO on 06/15/25 11:51 Dose Route Admin Location Dispensed Lot Number Expiration Date [facility] [employer] Teacher 20 mg intra-articular 0.5 mL [id number] [employer] Total Dispensed Waste 0.5 mL 0 % lidocaine (PF) 20 mg/mL (2 %) injection solution Performing Provider: Thomas Cote DO Performing Location: [facility] Administered by: Thomas Cote DO on 06/15/25 11:51 Dose Route Admin Location Dispensed Lot Number Expiration Date [facility] [employer] Teacher 20 mg intra-articular 1 mL [id number] Total Dispensed Waste 1 mL 0 % Assessment & Plan Assessment & Plan (1) Arthritis of carpometacarpal (CMC) joint of right thumb: Code(s): M18.11 - Unilateral primary osteoarthritis of first carpometacarpal joint, right hand Category: Medical (2) Carpal tunnel syndrome of left wrist: Code(s): G56.02 - Carpal tunnel syndrome, left upper limb Category: Medical (3) Polyarthritis: Code(s): M13.0 - Polyarthritis, unspecified Category: Medical Plan Pain Management Plan Patient was informed and verbally consented to the use of an ambient scribe for clinic note documentation during this visit. 1. Lower Back Pain The patient continues to experience persistent lower back pain, we're not planning any spinal procedures at this time. 2. Polyarticular Pain The patient has a history of polyarticular pain, treated with multiple intraarticular injections over the years. Current management includes corticosteroid injections to the right thumb CMC joint and left carpal tunnel. 3. Carpal Tunnel Syndrome The patient has a history of right carpal tunnel surgery, but symptoms persist on the left side. She is reluctant to undergo surgery on the left side and is currently managed with corticosteroid injections. 4. Right Thumb Carpometacarpal Joint Pain The patient experiences pain in the right thumb CMC joint, managed with corticosteroid injections. She receives these injections every three months, with the last procedure on March 16, 2025. Injections will be repeated today. Risks and benefits of the procedure were discussed with the patient. Potential alternative measures were also discussed. Patient understands that the procedure is completely elective. Potential side effects associated with injectable medications were discussed. All questions were answered to the patient's satisfaction. Discussion Notes Patient Instructions Orders: Orders AMB Thumb CMC Injection Today M18.11 - Unilateral primary osteoarthritis of first carpometacarpal joint, right hand AMB Carpal Tunnel Injection Today G56.02 - Carpal tunnel syndrome, left upper limb Coding Level of Care Code Est Pt Level 3 (34708) Complex EM visit Add On G2211 Diagnoses Arthritis of carpometacarpal (CMC) joint of right thumb M18.11 Carpal tunnel syndrome of left wrist G56.02 Polyarthritis M13.0 CPT Codes AMB Carpal Tunnel Injection - Carpal Tunnel Therapeutic Injection - 87527: Left ([id number]) AMB Thumb Injection - Carpal Tunnel Therapeutic Injection - : Right ([id number])
[2025-06-15 10:04] VITALS: BMI 34.2
== END 2025-06-15 10:38 | disposition home or self-care (01) ==
LOC: HO.HPHYS 09:55
PROVIDERS: PCP Internal Medicine; Visit Provider Physical Medicine & Rehabilitation
DX: M18.11 Unilateral primary osteoarthritis of first carpometacarpal joint, right hand (principal); G56.02 Carpal tunnel syndrome, left upper limb; M13.0 Polyarthritis, unspecified
CPT/HCPCS: 20526; 20600; 99213

== ENCOUNTER → 2025-06-15 09:55 | Outpatient (BNVA) | payer MEDICARE, MEDICAID, SELFPAY | PROVIDERS: PCP Internal Medicine; Visit Provider Physical Medicine & Rehabilitation | DX: M18.11 Unilateral primary osteoarthritis of first carpometacarpal joint, right hand (principal); G56.02 Carpal tunnel syndrome, left upper limb | CPT/HCPCS: 20526; 20600; 99212; J2003; J3301 ==